=== PATIENT | female | born 1995 | race Caucasian/White ===

== ENCOUNTER 2022-04-09 23:59 | Inpatient (IN) | payer OTHER ==
[2022-04-10] MEDS ORDERED: Acetaminophen 500 MG Tab PO PRN ×3 (00:17→13:14)
[2022-04-10] MEDS ORDERED: Carboprost Tromethamine 250 MCG/1 ML Amp IM PRN (00:17)
[2022-04-10] MEDS ORDERED: Misoprostol 200 MCG Tab PO PRN (00:17)
[2022-04-10] MEDS ORDERED: Methylergonovine 0.2 MG/1 ML Amp IM PRN (00:17)
[2022-04-10] MEDS ORDERED: Sodium Chloride 0.9% 20 ML SDV IV PRN (00:17)
[2022-04-10] MEDS ORDERED: Ondansetron 4 MG/2 ML SDV IVPUSH PRN (00:17)
[2022-04-10] MEDS ORDERED: Nalbuphine HCl 10 MG/ 1ML Amp IVPUSH ONE (00:17)
[2022-04-10] MEDS ORDERED: Lidocaine 1% 50 ML MDV INJECT PRN (00:17)
[2022-04-10] MEDS ORDERED: Water For Irrigation,Sterile 1,000 ML Container IRR PRN (00:17)
[2022-04-10] MEDS ORDERED: Sodium Chloride 0.9% 2.5 ML Syringe FLUSH PRN (00:17)
[2022-04-10] MEDS ORDERED: Terbutaline 1 MG/ML SDV SUBCUT PRN (00:17)
[2022-04-10] MEDS ORDERED: Tranexamic Acid 1,000 MG in Sodium Chloride 0.9% 100 ML IV PRN (00:17)
[2022-04-10] MEDS ORDERED: Sodium Chloride 0.9% 10 ML Syringe FLUSH PRN (00:17)
[2022-04-10] MEDS ORDERED: Oxytocin/0.9 % Sodium Chloride 30 UNIT/500 ML BAG IV SCH (00:30)
[2022-04-10] MEDS: Misoprostol 25 MCG (1/4 of 100 MCG) Tab VAG PRN ×2 (01:02→05:09)
[2022-04-10] MEDS: Misoprostol 25 MCG (1/4 of 100 MCG) Tab PO PRN ×2 (01:02→05:09)
[2022-04-10] MEDS ORDERED: Misoprostol 25 MCG (1/4 of 100 MCG) Tab PO PRN (05:00)
[2022-04-10] MEDS ORDERED: Misoprostol 25 MCG (1/4 of 100 MCG) Tab VAG PRN (05:00)
[2022-04-10] MEDS ORDERED: Nalbuphine HCl 10 MG/ 1ML Amp ONE (05:08)
[2022-04-10] MEDS ORDERED: Phenylephrine HCl In 0.9% NaCl 1 MG/10 ML Vial IVPUSH PRN (07:08)
[2022-04-10] MEDS ORDERED: ePHEDrine 50 MG/ML SDV IVPUSH PRN ×2 (07:08)
[2022-04-10] MEDS: Lactated Ringers 1,000 ML IV SCH ×2 (07:10→09:38)
[2022-04-10] MEDS ORDERED: Ropivacaine HCl/PF 400 MG in Premix Bag 1 BAG EPIDUR SCH (07:15)
[2022-04-10] MEDS ORDERED: Phenylephrine HCl In 0.9% NaCl 1 MG/10 ML Vial IVPUSH SCH (07:15)
[2022-04-10] MEDS ORDERED: Lidocaine 2% with EPINEPHrine 1:200,000 20 ML SDV ONE (09:20)
[2022-04-10] MEDS: Oxytocin/0.9 % Sodium Chloride 30 UNIT/500 ML BAG IV SCH ×2 (10:05→10:41)
[2022-04-10] MEDS ORDERED: Docusate Sodium 100 MG Cap PO PRN (13:14)
[2022-04-10] MEDS ORDERED: Bisacodyl 10 MG Supp RECTAL PRN (13:14)
[2022-04-10] MEDS ORDERED: Ibuprofen 800 MG Tab PO PRN (13:14)
[2022-04-10] MEDS ORDERED: Benzocaine/Menthol 20%-0.5% Spray 78 GM Cannister TOP PRN (13:14)
[2022-04-10] MEDS ORDERED: Lanolin 100% Cream 7 GM Tube TOP PRN (13:14)
[2022-04-10] MEDS ORDERED: Ibuprofen 400 MG Tab PO PRN (13:14)
[2022-04-10] MEDS ORDERED: Witch Hazel Medicated Pads 40/Jar TOP PRN (13:14)
== END 2022-04-11 13:39 | disposition home or self-care (01) | DRG 807 ==
LOC: MW.OBCHECK 23:59 → MW.OB 23:59 → MW.OBCHECK 04-10 00:18 → OBSVTOIN 04-10 10:04 → MW.OB 04-10 14:11
PROVIDERS: ADMIT Obstetrics & Gynecology; ATTEND Obstetrics & Gynecology
PROC: 10E0XZZ Delivery of Products of Conception, External Approach (ICD-10-PCS; principal; 2022-04-10)
PROC: 3E0P7VZ Introduction of Hormone into Female Reproductive, Via Natural or Artificial Opening (ICD-10-PCS; 2022-04-10)
PROC: 0HQ9XZZ Repair Perineum Skin, External Approach (ICD-10-PCS; 2022-04-10)
PROC: 3E0R3BZ Introduction of Anesthetic Agent into Spinal Canal, Percutaneous Approach (ICD-10-PCS; 2022-04-10)
PROC: 00HU33Z Insertion of Infusion Device into Spinal Canal, Percutaneous Approach (ICD-10-PCS; 2022-04-10)
PROC: 10907ZC Drainage of Amniotic Fluid, Therapeutic from Products of Conception, Via Natural or Artificial Opening (ICD-10-PCS; 2022-04-10)
DX: O24.425 Gestational diabetes mellitus in childbirth, controlled by oral hypoglycemic drugs (principal); Z37.0 Single live birth; O99.02 Anemia complicating childbirth; D64.9 Anemia, unspecified; O77.0 Labor and delivery complicated by meconium in amniotic fluid; O70.0 First degree perineal laceration during delivery; Z20.822 Contact with and (suspected) exposure to COVID-19; Z88.8 Allergy status to other drugs, medicaments and biological substances; Z3A.39 39 weeks gestation of pregnancy; Z79.899 Other long term (current) drug therapy; Z79.84 Long term (current) use of oral hypoglycemic drugs
CPT/HCPCS: 36415; 51701; 59025; 59409; 85014; 85018; 85027; 86592; 86850; 86900; 86901; A9270-GY; J2210; J2300; J2405; J2590; J3490; J7120; U0002

== ENCOUNTER 2024-03-16 21:58 | Emergency (ER) | payer BC ==
[2024-03-16] MEDS: Tranexamic Acid in NACL,ISO-OS 1,000 MG in Premix Bag 1 BAG IV ONE (22:16)
[2024-03-16 22:24] LABS: HEMATOCRIT 36.6 % (37.0-47.0); HEMOGLOBIN 12.5 g/dL (12.0-16.0); MEAN CORPUSCULAR HEMOGLOBIN 28.2 pg (28.0-32.0); MEAN CORPUSCULAR HGB CONC 34.2 g/dL (32.0-36.0); MEAN CORPUSCULAR VOLUME 82.4 fL (83.0-99.0); MEAN PLATELET VOLUME 9.1 fL (9.4-12.3); PLATELET COUNT,PLT 251 K/uL (150-400); RED BLOOD CELL COUNT 4.44 M/uL (4.10-5.30); WHITE BLOOD CELL COUNT,WBC 12.46 K/uL (3.9-11.3)
[2024-03-16 22:38] LABS: PTT,PARTIAL THROMBOPLSTIN TIME 33.5 SEC (23.9-30.7)
[2024-03-16] MEDS: Ondansetron 4 MG/2 ML SDV IVPUSH ONE (22:49)
[2024-03-16 23:03] LABS: A/G RATIO 0.9 (0.9-1.6); ALBUMIN 3.2 g/dL (3.4-5.0); BILIRUBIN TOTAL 0.2 mg/dL (0.2-1.0); CALCIUM 9.1 mg/dL (8.5-10.1); CARBON DIOXIDE,CO2 23.8 mmol/L (21.0-32.0); CREATININE 0.9 mg/dL (0.6-1.0); EST CRCL DRUG DOSING (CG) 73.6 mL/min; POTASSIUM,K 3.8 mmol/L (3.5-5.1); PROTEIN TOTAL,TP 6.7 g/dL (6.4-8.2)
[2024-03-17] MEDS: Morphine 4 MG/ML Syringe IVPUSH ONE (01:17)
[2024-03-17] MEDS: Ondansetron 4 MG/2 ML SDV IVPUSH STA (01:17)
== END 2024-03-17 02:20 | disposition home or self-care (01) ==
LOC: MW.ED 21:58
DX: O03.9 Complete or unspecified spontaneous abortion without complication (principal)
CPT/HCPCS: 36415; 76817; 80053; 85027; 85610; 85730; 86850; 86900; 86901; 96374; 96375; 96376; 99284; J2270; J2405